=== PATIENT | male | born 1960 | race American Indian/Alaskan Native ===

== ENCOUNTER 2017-01-11 14:48 | Inpatient (IN) | payer MEDICAID, OTHER ==
[2017-01-11 15:25] LABS: BASO # 0.1 K/uL (0.0-0.2); BASO % 0.8 % (0.0-2.0); EOS # 0.2 K/uL (0.0-0.7); EOS % 2.9 % (0.0-4.0); HEMATOCRIT 39.8 % (35.0-51.0); LYMPH # 2.9 K/uL (1.0-4.3); LYMPH % 34.8 % (20.0-40.0); MEAN CELL VOLUME 94.5 fL (80.0-94.0); MEAN CORPUSCULAR HEMOGLOBIN 32.6 pg (27.0-31.0); MEAN CORPUSCULAR HGB CONC 34.5 g/dL (33.0-37.0); MEAN PLATELET VOLUME 8.5 fL (7.2-11.7); MONO # 0.4 K/uL (0.0-0.8); MONO % 5.1 % (0.0-10.0); WHITE BLOOD COUNT 8.3 K/uL (4.8-10.8)
[2017-01-11 15:37] LABS: RBC URINE < 1 /hpf (0-3); URINE BILIRUBIN NEGATIVE (NEGATIVE); URINE BLOOD NEGATIVE (NEGATIVE); URINE COLOR Straw (YELLOW); URINE GLUCOSE (UA) NORMAL (Normal); URINE KETONE NEGATIVE (NEGATIVE); URINE LEUKOCYTE ESTERASE NEG Leu/uL (Negative); URINE PROTEIN NEGATIVE (NEGATIVE); URINE UROBILINOGEN NORMAL mg/dL (0.2-1.0); WBC URINE < 1 /hpf (0-5)
[2017-01-11 15:46] LABS: CHLORIDE 103 mmol/L (98-107)
[2017-01-11 15:47] LABS: POTASSIUM 3.8 mmol/L (3.6-5.2); SODIUM 142 mmol/L (132-148)
[2017-01-11 15:50] LABS: ALB/GLOB RATIO 1.4 (1.0-2.1); ALKALINE PHOSPHATASE 68 U/L (38-126); ALT/SGPT 32 U/L (21-72); AST/SGOT 32 U/L (17-59); BILIRUBIN,TOTAL 0.6 mg/dL (0.2-1.3); BLOOD UREA NITROGEN 12 mg/dL (9-20); CALCIUM 9.1 mg/dl (8.6-10.4); CARBON DIOXIDE 23 mmol/L (22-30); GFR AFRICAN-AMERICAN > 60; GLUCOSE,RANDOM 91 mg/dL (75-110); TOTAL PROTEIN 7.7 g/dL (6.3-8.3)
[2017-01-11 15:51] LABS: ALCOHOL SERUM 174 mg/dl (0-10)
--- NOTE | 2017-01-11 16:34 | C.PDOC ---
History Of Present Illness 56 y/o male presents to ED requesting detox from alcohol and heroin. Patient states his last use was this morning. He denies any physical complaints at this time. Time Seen by Provider: 01/11/17 14:57 Chief Complaint (Nursing): Substance Abuse History Per: Patient History/Exam Limitations: no limitations Onset/Duration Of Symptoms: Gradual Current Symptoms Are (Timing): Still Present Suicide/Self Injury Attempted (Context): None Modifying Factor(s): Alcohol, Narcotics, Other (heroin) Severity: Moderate Associated Symptoms: denies: Suicidal Thoughts, Suicidal Plan Involuntary Hold By: None Additional History Per: Patient Past Medical History Reviewed: Historical Data, Nursing Documentation, Vital Signs Vital Signs: Last Vital Signs Temp 98.5 F 01/11/17 17:32 Pulse 82 01/11/17 17:32 Resp 18 01/11/17 17:32 BP 130/69 01/11/17 17:32 Pulse Ox 96 01/11/17 17:55 - Medical History PMH: No Chronic Diseases Family History: States: No Known Family Hx - Social History Hx Alcohol Use: Yes Hx Substance Use: Yes - Immunization History Hx Tetanus Toxoid Vaccination: No Hx Influenza Vaccination: No Hx Pneumococcal Vaccination: No Review Of Systems Except As Marked, All Systems Reviewed And Found Negative. Constitutional: Negative for: Fever, Chills Cardiovascular: Negative for: Chest Pain, Palpitations Respiratory: Negative for: Cough, Shortness of Breath Gastrointestinal: Negative for: Nausea, Vomiting, Abdominal Pain Genitourinary: Negative for: Dysuria, Frequency Musculoskeletal: Negative for: Neck Pain, Back Pain Skin: Negative for: Rash Neurological: Positive for: Dizziness. Negative for: Headache Psych: Negative for: Suicidal ideation Physical Exam - Physical Exam Appears: Well, Non-toxic, No Acute Distress Skin: Normal Color, Warm, Dry Eye(s): bilateral: Normal Inspection Oral Mucosa: Moist Neck: Supple Cardiovascular: Rhythm Regular Respiratory: Normal Breath Sounds, No Rales, No Rhonchi, No Wheezing Gastrointestinal/Abdominal: Normal Exam, Bowel Sounds, Soft, No Tenderness Extremity: Normal ROM, No Pedal Edema Neurological/Psych: Oriented x3 ED Course And Treatment - Laboratory Results Result Diagrams: 01/11/17 15:21 01/11/17 15:21 O2 Sat by Pulse Oximetry: 96 (RA) Pulse Ox Interpretation: Normal Progress Note: Blood work, UA, UDS ordered and reviewed. 4:35pm- Patient medically cleared. Pending crisis. 5:49pm- Patient accepted for detox admission by Dr. Yoder. Disposition - Disposition Disposition: HOSPITALIZED Disposition Time: 17:49 Condition: STABLE - Clinical Impression Clinical Impression: Heroin dependence, Alcohol dependence - Scribe Statement The provider has reviewed the documentation as recorded by the Scribe Trevor To All medical record entries made by the Scribe were at my direction and personally dictated by me. I have reviewed the chart and agree that the record accurately reflects my personal performance of the history, physical exam, medical decision making, and the department course for this patient. I have also personally directed, reviewed, and agree with the discharge instructions and disposition. Decision To Admit - Pt Status Changed To: Hospital Disposition Of: Inpatient - Admit Certification Admit to Inpatient:: After my assessment, the patient will require hospitalization for at least two midnights. This is because of the severity of symptoms shown, intensity of services needed, and/or the medical risk in this patient being treated as an outpatient. - InPatient: Physician Admission Certification: I certify that this patient requires 2 or more midnights of care for the following reason:: see notes - . Bed Request Type: Detox Admitting Physician: Vicky Yoder Patient Diagnosis: Heroin dependence, Alcohol dependence
[2017-01-12] MEDS: Multiple Vitamins Tab PO SCH (10:19)
--- NOTE | 2017-01-12 14:39 | CP.PCM.CON ---
<Maisha Camp - Last Filed: 01/12/17 15:20> History of Present Illness - History of Present Illness History of Present Illness: Medicine Consult Note for Dr. Maher CC: Consult for blood pressure management HPI: 56M with PMHx Alcohol Abuse, Heroine Abuse, and Tobacco Use Disorder was seen on Detox for heroine and alcohol withdrawal. Patient reports he feels lightheaded and dizzy. Patient reports he currently does not have any visual or neurological deficits. Denied fever, chills, headache, SOB, chest pain, abdominal pain, n/v/d/c, or urinary symptoms. PMHx: Alcohol Abuse, Heroine Abuse, and Tobacco Use Disorder PSHx: Denied Meds: Denied All: NKDA SHx: Drinks 2-3 pints of hard liquor a day for the past 5 years, sniffs heroine x 5 years, spokes 1 PPD x 5 years FHx: Denied PMD: None Past Patient History - Past Medical History & Family History Past Medical History?: Yes - Past Social History Smoking Status: Heavy Smoker > 10 Cigarettes Daily - CARDIAC Hx Cardiac Disorders: No Hx Hypertension: No - PULMONARY Hx Tuberculosis: No - NEUROLOGICAL HX Cerebrovascular Accident: No Hx Seizures: No - HEMATOLOGICAL/ONCOLOGICAL Hx Cancer: No Hx Human Immunodeficiency Virus (HIV): No - MUSCULOSKELETAL/RHEUMATOLOGICAL Hx Falls: No - GENITOURINARY/GYNECOLOGICAL Hx Sexually Transmitted Disorders: No - PSYCHIATRIC Hx Substance Use: Yes - SURGICAL HISTORY Hx Surgeries: No - ANESTHESIA Hx Anesthesia: No Meds Allergies/Adverse Reactions: Allergies Allergy/AdvReac Type Severity Reaction Status Date / Time No Known Allergies Allergy Verified 01/11/17 14:54 - Medications Medications: Current Medications Clonidine HCl (Catapres) 0.1 mg PO Q8 PRN PRN Reason: COWS Score More or Equal to 5 Last Admin: 01/12/17 06:20 Dose: 0.1 mg Folic Acid (Folic Acid) 1 mg PO DAILY [facility] Last Admin: 01/12/17 10:19 Dose: Not Given Haloperidol (Haldol) 5 mg PO Q8 PRN PRN Reason: Moderate Agitation Ibuprofen (Motrin Tab) 400 mg PO Q8H PRN PRN Reason: Pain, Mild (1-3) Loperamide HCl (Imodium) 2 mg PO Q8 PRN PRN Reason: Diarrhea Lorazepam (Ativan) 2 mg PO Q4 [facility] PRN Reason: Taper Stop: 01/16/17 18:29 Last Admin: 01/12/17 12:51 Dose: 2 mg Multivitamins (Hexavitamin) 1 tab PO DAILY [facility] Last Admin: 01/12/17 10:19 Dose: Not Given Ondansetron HCl (Zofran Tab) 4 mg PO Q8 PRN PRN Reason: Nausea/Vomiting Thiamine HCl (Vitamin B1 Tab) 100 mg PO DAILY [facility] Last Admin: 01/12/17 10:19 Dose: Not Given Trazodone HCl (Desyrel) 50 mg PO HS PRN PRN Reason: Insomnia Physical Exam - Constitutional Appears: No Acute Distress - Head Exam Head Exam: NORMAL INSPECTION, NORMOCEPHALIC - Eye Exam Eye Exam: EOMI, Normal appearance, PERRL Pupil Exam: NORMAL ACCOMODATION - ENT Exam ENT Exam: Mucous Membranes Dry, Normal Exam Additional comments: Poor dentition, most teeth are missing - Respiratory Exam Respiratory Exam: Clear to Auscultation Bilateral, NORMAL BREATHING PATTERN. absent: Decreased Breath Sounds, Wheezes - Cardiovascular Exam Cardiovascular Exam: Tachycardia, REGULAR RHYTHM. absent: Diastolic murmur, Systolic Murmur - GI/Abdominal Exam GI & Abdominal Exam: Normal Bowel Sounds, Soft. absent: Distended, Tenderness - Extremities Exam Extremities exam: Positive for: normal inspection, pedal pulses present. Negative for: pedal edema, tenderness Additional comments: Some clubbing appreciated in his hands - Neurological Exam Neurological exam: Alert, Oriented x3 - Psychiatric Exam Psychiatric exam: Normal Affect, Normal Mood - Skin Skin Exam: Dry, Intact, Normal Color, Warm Results - Vital Signs Recent Vital Signs: Last Vital Signs Temp 98.7 F 01/12/17 12:30 Pulse 51 L 01/12/17 13:45 Resp 18 01/12/17 13:45 BP 188/89 H 01/12/17 13:45 Pulse Ox 96 01/12/17 13:45 - Labs Result Diagrams: 01/11/17 15:21 01/11/17 15:21 Labs: Laboratory Results - last 24 hr 01/11/17 01/11/17 01/11/17 15:21 15:21 15:21 WBC 8.3 RBC 4.21 L Hgb 13.7 Hct 39.8 MCV 94.5 H MCH 32.6 H MCHC 34.5 RDW 15.0 H Plt Count 218 MPV 8.5 Neut % (Auto) 56.4 Lymph % (Auto) 34.8 Chase % (Auto) 5.1 Eos % (Auto) 2.9 Baso % (Auto) 0.8 Neut # 4.7 Lymph # 2.9 Chase # 0.4 Eos # 0.2 Baso # 0.1 Sodium 142 Potassium 3.8 Chloride 103 Carbon Dioxide 23 Anion Gap 20 BUN 12 Creatinine 0.9 Est GFR ( Amer) > 60 Est GFR (Non-Af Amer) > 60 Random Glucose 91 Calcium 9.1 Total Bilirubin 0.6 AST 32 ALT 32 Alkaline Phosphatase 68 Total Protein 7.7 Albumin 4.4 Globulin 3.2 Albumin/Globulin Ratio 1.4 Urine Color Straw Urine Clarity Clear Urine pH 5.0 Ur Specific [place] 1.005 Urine Protein Negative Urine Glucose (UA) Normal Urine Ketones Negative Urine Blood Negative Urine Nitrate Negative Urine Bilirubin Negative Urine Urobilinogen Normal Ur Leukocyte Esterase Neg Urine WBC (Auto) < 1 Urine RBC (Auto) < 1 Urine Opiates Screen Urine Methadone Screen Ur Barbiturates Screen Ur Phencyclidine Scrn Ur Amphetamines Screen U Benzodiazepines Scrn U Oth Cocaine Metabols U Cannabinoids Screen Alcohol, Quantitative 174 H 01/11/17 15:21 WBC RBC Hgb Hct MCV MCH MCHC RDW Plt Count MPV Neut % (Auto) Lymph % (Auto) Chase % (Auto) Eos % (Auto) Baso % (Auto) Neut # Lymph # Chase # Eos # Baso # Sodium Potassium Chloride Carbon Dioxide Anion Gap BUN Creatinine Est GFR ( Amer) Est GFR (Non-Af Amer) Random Glucose Calcium Total Bilirubin AST ALT Alkaline Phosphatase Total Protein Albumin Globulin Albumin/Globulin Ratio Urine Color Urine Clarity Urine pH Ur Specific [place] Urine Protein Urine Glucose (UA) Urine Ketones Urine Blood Urine Nitrate Urine Bilirubin Urine Urobilinogen Ur Leukocyte Esterase Urine WBC (Auto) Urine RBC (Auto) Urine Opiates Screen Positive Urine Methadone Screen Negative Ur Barbiturates Screen Negative Ur Phencyclidine Scrn Negative Ur Amphetamines Screen Negative U Benzodiazepines Scrn Negative U Oth Cocaine Metabols Negative U Cannabinoids Screen Negative Alcohol, Quantitative Assessment & Plan - Assessment and Plan (Free Text) Plan: Hypertension * Most likely 2/2 alcohol and heroine withdrawal * Clonidine 0.1mg PO Q4H PRN Hold if SBP < 120 * Hydralazine 25mg PO QID PRN SBP > 180 * Started on Norvasc 5mg PO daily * Will continue to monitor Tobacco Use Disorder * Smoking Cessation encouraged * Nicotine patch started Alcohol Withdrawal * Management as per psych Heroine Withdrawal * Management as per psych * UDS + opiates Medicine Team will monitor this patient closely. Thank you for this consult. DW Conrado Chung DO, PGY-1 <Ankur Maher - Last Filed: 01/13/17 10:43> Meds - Medications Medications: Current Medications Amlodipine Besylate (Norvasc) 5 mg PO DAILY [facility] Last Admin: 01/13/17 09:27 Dose: 5 mg Clonidine HCl (Catapres) 0.1 mg PO Q4 [facility] Last Admin: 01/13/17 08:32 Dose: Not Given Folic Acid (Folic Acid) 1 mg PO DAILY [facility] Last Admin: 01/13/17 09:15 Dose: Not Given Haloperidol (Haldol) 5 mg PO Q8 PRN PRN Reason: Moderate Agitation Hydralazine HCl (Apresoline) 25 mg PO QID PRN PRN Reason: Systolic Blood Pressure Ibuprofen (Motrin Tab) 400 mg PO Q8H PRN PRN Reason: Pain, Mild (1-3) Loperamide HCl (Imodium) 2 mg PO Q8 PRN PRN Reason: Diarrhea Lorazepam (Ativan) 1 mg PO .TAPER [facility] PRN Reason: Taper Stop: 01/17/17 10:19 Multivitamins (Hexavitamin) 1 tab PO DAILY [facility] Last Admin: 01/13/17 09:15 Dose: Not Given Nicotine (Nicoderm Cq) 1 patch TD DAILY [facility] Last Admin: 01/13/17 09:27 Dose: 1 patch Ondansetron HCl (Zofran Tab) 4 mg PO Q8 PRN PRN Reason: Nausea/Vomiting Last Admin: 01/13/17 00:56 Dose: 4 mg Thiamine HCl (Vitamin B1 Tab) 100 mg PO DAILY [facility] Last Admin: 01/13/17 09:16 Dose: Not Given Trazodone HCl (Desyrel) 50 mg PO HS PRN PRN Reason: Insomnia Results - Vital Signs Recent Vital Signs: Last Vital Signs Temp 98.0 F 01/13/17 08:27 Pulse 93 H 01/13/17 09:40 Resp 18 01/13/17 08:27 BP 146/79 01/13/17 09:40 Pulse Ox 98 01/13/17 08:27 - Labs Result Diagrams: 01/11/17 15:21 01/11/17 15:21 Attending/Attestation - Attestation I have personally seen and examined this patient.: Yes I have fully participated in the care of the patient.: Yes I have reviewed all pertinent clinical information: Yes Notes (Text): Hypertension due to withdrawal He reports no history
--- NOTE | 2017-01-12 20:50 | PCM.PSYCH ---
Initial Psychiatric Evaluation - Initial Psychiatric Evaluation Type of Admission: Voluntary Legal Status: Capacity Chief Complaint (in patient's own words): I'm feeling better History of Present Illness and Precipitating Events: Time spend 32 minutes This is a 56 yo male admitted for opioid and etoh detox. Pt reported that he is abusing heroin intranasally 12 bags daily, and had withdrawal symptoms if not able to use. His last use was yesterday. He reported opioid withdrawal symptoms such as nausea, headache, bodyaches, feeling dizzy, low appetite, nasal congestion. He reproted that he drinks 1 pint of Wine with 1 shot daily. He reported that he start using heroin and alcohol many years ago. CAGE questionnaire was positive. He reported etoh withdrawal symptoms with the evidence of physical symptoms. Pt had previous been in a detox unit in at [facility] in 2011. Pt states he lives with his mother who is a support system for him. Pt is currently unemployed for the last 4 years. Pt denies currently being on disability benefits. Pt provides no stressors. Pt does state he has poor sleep and appetite and had lost 20 lbs in about a years time. Pt denies a psychiatric hx , tx or admission. Pt denies S/H/Is. Pt denies A/V/Hs and delusions. Pt denied manic symptoms. He denied anxiety symptoms. Current Medications: Active Medications Generic Name Dose Route Start Last Admin Trade Name Freq PRN Reason Stop Dose Admin Amlodipine Besylate 5 mg 01/13/17 10:00 Norvasc PO DAILY [facility] Clonidine HCl 0.1 mg 01/12/17 16:00 01/12/17 20:19 Catapres PO Not Given Q4 [facility] Folic Acid 1 mg 01/12/17 10:00 01/12/17 10:19 Folic Acid PO Not Given DAILY [facility] Haloperidol 5 mg 01/11/17 18:22 Haldol PO Q8 PRN Moderate Agitation Hydralazine HCl 25 mg 01/12/17 15:19 Apresoline PO QID PRN Systolic Blood Pressure Ibuprofen 400 mg 01/11/17 18:29 Motrin Tab PO Q8H PRN Pain, Mild (1-3) Loperamide HCl 2 mg 01/11/17 18:22 Imodium PO Q8 PRN Diarrhea Lorazepam 2 mg 01/11/17 18:30 01/12/17 20:19 Ativan PO 01/16/17 18:29 Not Given Q4 [facility] Taper Multivitamins 1 tab 01/12/17 10:00 01/12/17 10:19 Hexavitamin PO Not Given DAILY [facility] Nicotine 1 patch 01/13/17 10:00 Nicoderm Cq TD DAILY [facility] Ondansetron HCl 4 mg 01/11/17 18:22 Zofran Tab PO Q8 PRN Nausea/Vomiting Thiamine HCl 100 mg 01/12/17 10:00 01/12/17 10:19 Vitamin B1 Tab PO Not Given DAILY [facility] Trazodone HCl 50 mg 01/11/17 18:22 Desyrel PO HS PRN Insomnia Past Psychiatric History - Past Psychiatric History Previous Treatment History: Inpatient At [facility]: [facility] 2011 for detox History of Abuse: denied History of ETOH/Drug Use: please see HPI History of Family Illness: denied Pertinent Medical Hx (Current Medical&Sleep Prob, Allergies): Allergies Allergy/AdvReac Type Severity Reaction Status Date / Time No Known Allergies Allergy Verified 01/11/17 14:54 No Known Home Med 01/11/17 Review of Systems - Review of Systems Systems not reviewed;Unavailable: Acuity of Condition All systems: reviewed and no additional remarkable complaints except (see HPI) Mental Status Examination - Personal Presentation Personal Presentation: Looks stated age, Dressed appropriate to season - Affect Affect: Constricted - Motor Activity Motor Activity: Calm, Psychomotor Retardation - Reliability in Providing Information Reliability in Providing Information: Fair - Speech Speech: Organized, Coherent - Mood Mood: Anxious - Formal Thought Process Formal Thought Process: Other (denied avh, paranoid delusions) - Hallucinations/Delusions Delusions: Other (denied) - Obsessions/Compulsions Obsessions: No Compulsions: No - Cognitive Functions Orientation: Person, Place, Situation, Time Abstract Thinking: [place] Estimate of Intelligence: Average Judgement: Intact, as evidence by: Good judgement, Intact, as evidence by: Insight regarding need for hospitalization Memory: Recent intact, as evidence by: Ability to recall events of the day - Risk Risk: Withdrawal - Strength & Assets Inventory Strength & Assets Inventory: Family support, Education, Cooperative - Limitations Limitations: Other (unemployed and chronic substance abuse) DSM 5 DX - DSM 5 DSM 5 Diagnosis: Opioid use disorder, severe Opioid withdrawal Alcohol use disorder, severe, intoxication, withdrawal - Recommended/Plan of Treatment Treatment Recommendations and Plan of Treatment: Subutex detox As needed medications Gabapentin for augmentation Attend groups and activities Supportive therapy and psychoeducation [place] for abstinence CBT for relapse prevention Encourage MAT Refer to rehab or IOP Attend self-help groups as well Monitor vitals Consulted medicine for HTN and low pulse Projected ELOS: 4-5 days Prognosis: fair with meds Discharge Plan and Discharge Criteria: as per SW when pt is stabilized - Smoking Cessation Smoking Cessation Initiated: Yes
--- NOTE | 2017-01-13 08:03 | CP.PCM.PN ---
<Ty Cmapa - Last Filed: 01/13/17 13:13> Subjective - Date & Time of Evaluation Date of Evaluation: 01/13/17 Time of Evaluation: 07:00 - Subjective Subjective: Medicine Note for Dr. Dos Santos Patient was seen and examined at bedside. Patient reports he feels better, less palpitations. Denied fever, chills, headache, SOB, chest pain, n/v/d/c, or urinary symptoms. Objective - Vital Signs/Intake and Output Vital Signs (last 24 hours): Temp Pulse Resp BP Pulse Ox 99.0 F 76 18 148/72 97 01/13/17 05:11 01/13/17 05:11 01/13/17 05:11 01/13/17 05:11 01/13/17 05:11 - Medications Medications: Current Medications Amlodipine Besylate (Norvasc) 5 mg PO DAILY [facility] Clonidine HCl (Catapres) 0.1 mg PO Q4 [facility] Last Admin: 01/13/17 05:11 Dose: Not Given Folic Acid (Folic Acid) 1 mg PO DAILY [facility] Last Admin: 01/12/17 10:19 Dose: Not Given Haloperidol (Haldol) 5 mg PO Q8 PRN PRN Reason: Moderate Agitation Hydralazine HCl (Apresoline) 25 mg PO QID PRN PRN Reason: Systolic Blood Pressure Ibuprofen (Motrin Tab) 400 mg PO Q8H PRN PRN Reason: Pain, Mild (1-3) Loperamide HCl (Imodium) 2 mg PO Q8 PRN PRN Reason: Diarrhea Lorazepam (Ativan) 2 mg PO Q4 [facility] PRN Reason: Taper Stop: 01/16/17 18:29 Last Admin: 01/13/17 05:10 Dose: Not Given Multivitamins (Hexavitamin) 1 tab PO DAILY [facility] Last Admin: 01/12/17 10:19 Dose: Not Given Nicotine (Nicoderm Cq) 1 patch TD DAILY [facility] Ondansetron HCl (Zofran Tab) 4 mg PO Q8 PRN PRN Reason: Nausea/Vomiting Last Admin: 01/13/17 00:56 Dose: 4 mg Thiamine HCl (Vitamin B1 Tab) 100 mg PO DAILY [facility] Last Admin: 01/12/17 10:19 Dose: Not Given Trazodone HCl (Desyrel) 50 mg PO HS PRN PRN Reason: Insomnia - Labs Labs: 01/11/17 15:21 01/11/17 15:21 - Additional Findings Additional findings: - Constitutional Appears: No Acute Distress - Head Exam Head Exam: NORMAL INSPECTION, NORMOCEPHALIC - Eye Exam Eye Exam: EOMI, Normal appearance, PERRL Pupil Exam: NORMAL ACCOMODATION - ENT Exam ENT Exam: Mucous Membranes Dry, Normal Exam Additional comments: Poor dentition, most teeth are missing - Respiratory Exam Respiratory Exam: Clear to Auscultation Bilateral, NORMAL BREATHING PATTERN. absent: Decreased Breath Sounds, Wheezes - Cardiovascular Exam Cardiovascular Exam: Tachycardia, REGULAR RHYTHM. absent: Diastolic murmur, Systolic Murmur - GI/Abdominal Exam GI & Abdominal Exam: Normal Bowel Sounds, Soft. absent: Distended, Tenderness - Extremities Exam Extremities exam: Positive for: normal inspection, pedal pulses present. Negative for: pedal edema, tenderness Additional comments: Some clubbing appreciated in his hands - Neurological Exam Neurological exam: Alert, Oriented x3 - Psychiatric Exam Psychiatric exam: Normal Affect, Normal Mood - Skin Skin Exam: Dry, Intact, Normal Color, Warm Assessment and Plan - Assessment and Plan (Free Text) Plan: Hypertension * Most likely 2/2 alcohol and heroine withdrawal * Clonidine 0.1mg PO Q4H PRN Hold if SBP < 120 * Hydralazine 25mg PO QID PRN SBP > 180 * Started on Norvasc 5mg PO daily * BP yesterday was: 188/89 BP today is 148/79, 114/65. * Continue to maintain patient on current regimen of norvasc 5mg PO daily Tobacco Use Disorder * Smoking Cessation encouraged * Nicotine patch started Alcohol Withdrawal * Management as per psych Heroine Withdrawal * Management as per psych * UDS + opiates Thank you for this consult, medicine team will be signing off this patient. Please consult us again if necessary. DW Conrado Rowe DO, PGY-1 <Asia Dos Santos V - Last Filed: 01/13/17 17:01> Objective - Vital Signs/Intake and Output Vital Signs (last 24 hours): Temp Pulse Resp BP Pulse Ox 98.9 F 105 H 18 113/76 98 01/13/17 15:37 01/13/17 15:37 01/13/17 15:37 01/13/17 15:37 01/13/17 15:37 - Medications Medications: Current Medications Amlodipine Besylate (Norvasc) 5 mg PO DAILY [facility] Last Admin: 01/13/17 09:27 Dose: 5 mg Clonidine HCl (Catapres) 0.1 mg PO Q4 [facility] Last Admin: 01/13/17 12:15 Dose: Not Given Folic Acid (Folic Acid) 1 mg PO DAILY [facility] Last Admin: 01/13/17 09:15 Dose: Not Given Haloperidol (Haldol) 5 mg PO Q8 PRN PRN Reason: Moderate Agitation Hydralazine HCl (Apresoline) 25 mg PO QID PRN PRN Reason: Systolic Blood Pressure Ibuprofen (Motrin Tab) 400 mg PO Q8H PRN PRN Reason: Pain, Mild (1-3) Loperamide HCl (Imodium) 2 mg PO Q8 PRN PRN Reason: Diarrhea Lorazepam (Ativan) 1 mg PO Q6 [facility] PRN Reason: Taper Stop: 01/16/17 11:59 Last Admin: 01/13/17 13:15 Dose: 1 mg Multivitamins (Hexavitamin) 1 tab PO DAILY [facility] Last Admin: 01/13/17 09:15 Dose: Not Given Nicotine (Nicoderm Cq) 1 patch TD DAILY [facility] Last Admin: 01/13/17 09:27 Dose: 1 patch Ondansetron HCl (Zofran Tab) 4 mg PO Q8 PRN PRN Reason: Nausea/Vomiting Last Admin: 01/13/17 00:56 Dose: 4 mg Thiamine HCl (Vitamin B1 Tab) 100 mg PO DAILY [facility] Last Admin: 01/13/17 09:16 Dose: Not Given Trazodone HCl (Desyrel) 50 mg PO HS PRN PRN Reason: Insomnia - Labs Labs: 01/11/17 15:21 01/11/17 15:21 Attending/Attestation - Attestation I have personally seen and examined this patient.: Yes I have fully participated in the care of the patient.: Yes I have reviewed all pertinent clinical information, including history, physical exam and plan: Yes Notes (Text): Patient seen, examined and case discussed with day-time resident. Patient seen this afternoon. Patient reports he is feeling better. patient denies chest pain, denies palpitations, denies shortness of breathe, denies abdominal pain, reports mild diarrhea, denies dysuria, denies hematuria. Patient is admitted to detox for alcohol and heroin withdrawal. No personal history of hypertension but family history of hypertension. Patient is current cigarette smoker lifelong, advised to stop smoking to limit his risk to other disease including cancer. Assessment/Plan 1) Elevated Blood Pressure w/o History of Hypertension * Most likely 2/2 alcohol and heroine withdrawal * Clonidine 0.1mg PO Q4H PRN Hold if SBP < 120 * Hydralazine 25mg PO QID PRN SBP > 180 * Started on Norvasc 5mg PO daily * Blood pressure is controlled * Will put hold parameters on Norvasc 5mg PO daily (hold SBP<100) * Advised to stop smoking which is also a contributing factor 2) Tobacco Use Disorder * Smoking Cessation encouraged * Nicotine patch started 3) Alcohol Withdrawal * Management as per psych * On ativan taper 4) Heroin Withdrawal * Management as per psych * UDS + opiates Medicine team will sign off on this case. Please consult PRN as need. Thank you.
[2017-01-13] MEDS ORDERED: Buprenorphine Hydrochloride 2 mg SL ONE ×2 (09:00→09:41)
[2017-01-13] MEDS: Multiple Vitamins Tab PO SCH (09:15)
--- NOTE | 2017-01-13 19:41 | PCM.PYCHPN ---
Psychiatric Progress Note - Psychiatric Progress Note Patient seen today, length of contact: 16 minutes Patient Chief Complaint: "I'm feeling good" Problems Identified/Issues Discussed: The pt is seen, chart reviewed, case discussed with staff. Support given, CBT and TN used briefly No new symptoms reported, improving slowly and needs more time No SEs from medications, risks, benefits and alternative choices were discussed. After care discussed DSM 5 Symptoms Update: Opioid use disorder severe, dependence Opioid withdrawal Alcohol abuse with intoxication, Alcohol dependence with uncomplicated withdrawal Medication Change: Yes (Subutex taper) Medical Record Reviewed: Yes Consults ordered or reviewed: Medicine for HTN and low pulse Mental Status Examination - Cognitive Function Orientation: Person, Place, Situation, Time Attention: WNL Concentration: WNL Association: WNL Fund of Knowledge: WN Decription of patient's judgement and insights: improving/improving - Mood Mood: Anxious - Affect Affect: Constricted - Speech Speech: Soft - Formal Thought Process Formal Thought Process: No Impairment, Other (denied avh, paranoid delusions) Psychotic Thoughts and Behaviors: denied - Suicidal Ideation Suicidal Ideation: No - Homicidal Ideation Homicidal Ideation: No Goal/Treatment Plan - Goal/Treatment Plan Need for Continued Stay: Discharge may exacerbated symptoms Progress Toward Problem(s) and Goals/Treatment Plan: Subutex detox As needed medications Gabapentin for augmentation Attend groups and activities Supportive therapy and psychoeducation [place] for abstinence CBT for relapse prevention Encourage MAT Refer to rehab or IOP Attend self-help groups as well Monitor vitals Appreciate medicine team recommendation regarding HTN and low pulse Estimated Date of D/C: 01/15/17 - Smoking Cessation Smoking Cessation Initiated: Yes
--- NOTE | 2017-01-14 08:36 | PCM.BM ---
- Milieu Protocol Milieu Narrative: Subutex detox As needed medications Gabapentin for augmentation Attend groups and activities Supportive therapy and psychoeducation [place] for abstinence CBT for relapse prevention Encourage MAT Refer to rehab or IOP Attend self-help groups as well Monitor vitals Appreciate medicine team recommendation regarding HTN and low pulse Family Contact Family involvement: Famliy/SO not involved Family contact: Patient agrees to contact - Goals for Treatment Patient goals for treatment: Complete detox and transition to [facility]. Discharge/Continuing Care - Education Needs Education Needs: Patient Medication, Patient Diagnosis/Disease Process, Patient Coping Skills, Patient Anger Management skills, Patient Placement options, Patient Community resources, Patient Activities of Daily Living - Discharge Discharge Criteria: Ability to care for self, No longer exhibiting s/s of withdrawal, Reduction of target symptoms Discharge to:: Substance Abuse Rehab - Treatment Team Participation Patient/Family/SO Statement: Subutex detox As needed medications Gabapentin for augmentation Attend groups and activities Supportive therapy and psychoeducation [place] for abstinence CBT for relapse prevention Encourage MAT Refer to rehab or IOP Attend self-help groups as well Monitor vitals Appreciate medicine team recommendation regarding HTN and low pulse 01/14/17 08:35 "I wanna go back to [facility] when I'm done..." Discussed with Family/SO: No Was Patient/Family/SO present at Treatment Team Meeting: Yes
[2017-01-14] MEDS ORDERED: Aluminum Hydroxide/Magnesium Hydroxide Susp (30 mL) PO PRN (09:03)
--- NOTE | 2017-01-14 09:31 | PCM.BM ---
<ShabnamApolonia - Last Filed: 01/14/17 09:28> Treatment Plan Problems - Problems identified on initial assessmt Potential for Opiate withdrawal Date Initiated: 01/11/17 Assessment reference: NA Status: Active Potential for Alcohol Withdrawal Date Initiated: 01/11/17 Assessment reference: NA Status: Active Treatment assets and liabiliti Patient Assests: adapts well, cooperative, ADL independent Patient Liabilities: substance abuse - Milieu Protocol Maintain good personal hygiene: daily Encourage regular showers, daily Remind patient to perform daily oral care, daily Assist patient to perform ADL's Conduct patient checks and document Observation sheet: Q15 minutes Maintain personal safety: every shift Educate patient to report safety concerns to staff, every shift Monitor environment for contraband/sharps Medication safety: Monitor for expected outcome, potential side effects: every shift, Assess barriers to learning: every shift, Assess readiness for medication education: every shift Milieu Narrative: Subutex detox As needed medications Gabapentin for augmentation Attend groups and activities Supportive therapy and psychoeducation [place] for abstinence CBT for relapse prevention Encourage MAT Refer to rehab or IOP Attend self-help groups as well Monitor vitals Appreciate medicine team recommendation regarding HTN and low pulse 01/14/17 08:35 "I wanna go back to [facility] when I'm done..." Family Contact Family involvement: Famliy/SO not involved Family contact: Patient agrees to contact - Goals for Treatment Patient goals for treatment: Complete detox and transition to [facility]. Discharge/Continuing Care - Education Needs Education Needs: Patient Medication, Patient Diagnosis/Disease Process, Patient Coping Skills, Patient Anger Management skills, Patient Placement options, Patient Community resources, Patient Activities of Daily Living - Discharge Discharge Criteria: Ability to care for self, No longer exhibiting s/s of withdrawal, Reduction of target symptoms Discharge to:: Substance Abuse Rehab - Treatment Team Participation Patient/Family/SO Statement: Subutex detox As needed medications Gabapentin for augmentation Attend groups and activities Supportive therapy and psychoeducation [place] for abstinence CBT for relapse prevention Encourage MAT Refer to rehab or IOP Attend self-help groups as well Monitor vitals Appreciate medicine team recommendation regarding HTN and low pulse 01/14/17 08:35 "I wanna go back to [facility] when I'm done..." Discussed with Family/SO: No Was Patient/Family/SO present at Treatment Team Meeting: Yes <Donny Oviedo - Last Filed: 01/14/17 23:26> - Diagnosis (1) Heroin dependence Status: Acute Interventions: 01/14/17 23:26 * Assess 7x/week regarding severity of withdrawal * Educate regarding risks, benefits, side effects and alternatives of medications * Use Motivational Interviewing for abstinence * Use CBT for relapse prevention * Medication management for withdrawal symptoms * Encourage medication assisted treatment *
[2017-01-14] MEDS: Multiple Vitamins Tab PO SCH (09:45)
[2017-01-14] MEDS ORDERED: Buprenorphine Hydrochloride 2 mg SL SCH (10:00)
[2017-01-14 13:46] VITALS: BP 111/56; PULSE 64; RESP 18; TEMP 97.4; O2SAT 100
--- NOTE | 2017-01-14 15:17 | PCM.PYCHPN ---
Psychiatric Progress Note - Psychiatric Progress Note Patient seen today, length of contact: 16 min Patient Chief Complaint: "Detox is going alright" Problems Identified/Issues Discussed: Pt is seen, chart reviewed, case discussed with staff. Pt is compliant with medications and reports no side effects. He does not report of any complaints at this time and he states his medications are helping. Symptoms are improving but pt needs more time to stabilize. Support and psychoeducation given, CBT and DC used briefly. After care discussed. He would like to attend rehab at [facility]. He states that he does not like methadone. He will work with counselors today. Medication Change: Yes (Detox meds change daily) Medical Record Reviewed: Yes Mental Status Examination - Cognitive Function Orientation: Person, Place, Situation, Time Attention: WNL Concentration: WNL Association: WNL Fund of Knowledge: WNL - Mood Mood: Neutral - Affect Affect: Constricted - Speech Speech: Appropriate - Formal Thought Process Formal Thought Process: No Impairment, Other (denied avh, paranoid delusions) - Suicidal Ideation Suicidal Ideation: No - Homicidal Ideation Homicidal Ideation: No Goal/Treatment Plan - Goal/Treatment Plan Need for Continued Stay: Discharge may exacerbated symptoms Progress Toward Problem(s) and Goals/Treatment Plan: Subutex detox for opioid withdrawal Neurontin for augmentation Continue other medications as prescribed Attend groups and activities Attend self-help groups as well Supportive therapy and psychoeducation [place] for abstinence CBT for relapse prevention Encourage MAT Refer to after care
--- NOTE | 2017-01-14 23:26 | PCM.PYCHDC ---
Mental Status Examination - Mental Status Examination Orientation: Person, Place, Situation, Time Memory: Impaired Mood: Anxious Affect: Constricted Speech: Appropriate Attention: WNL Concentration: Poor Association: WNL Fund of Knowledge: Poor Suicidal Ideation: No Current Homicidal Ideation?: No Discharge Summary - Discharge Note Reason for Hospitalization: Heroin detox Consultations:: List each consultation separately and include: 1. Reason for request. 2. Findings. 3. Follow-up Summary of Hospital Course include:: 1. Description of specific treatment plan utilized for patients during their course of treatmen. 2. Summarize the time- course for resolution of acute symptoms and/or regressed behaviors. 3. Describe issues identified and worked on during hospitalization. 4. Describe medication utilized. 5. Describe medical problems identified and treated. 6. Reassessment of suicide risk Summary of Hospital Course: The pt was admitted and started on treatment with psychotherapy, support, psychoeducation and medications. MT and CBT used. The pt attended groups and activities, as well as milieu therapy. All the risks and benefits of medications are discussed and the patient understood and agreed. The pt started to improve with the treatments provided. However next day he demanded to leave AMA for no reason After care discussed with the patient. He said he would go to meetings risks of leaving AMA, incl. OD and discussed and he understood but still leaft He likely had cravings - which he wouldn;t discuss - Final Diagnosis (DSM 5) Condition upon Discharge: STABLE DSM 5: Opioid use disorder, severe Opioid withdrawal Alcohol use disorder, severe, intoxication, withdrawal Disposition: AGAINST MEDICAL ADVICE Follow-up Treatment Plan: Use relapse prevention skills Return to ER or call 911 if suicidal, homicidal or symptoms relapse. Stay away from stress, alcohol and drugs. See primary doctor regularly and get labs. - Smoking Cessation Smoking Cessation Medication prescribed: No - Antipsychotic Medications Pt discharged on 2 or more routine antipsychotic medications: No
== END 2017-01-14 15:10 | disposition left against medical advice (07) | DRG 743 ==
LOC: C.ER 14:48 → C.7D 17:49
PROVIDERS: ADMIT Psychiatry & Neurology Psychiatry; ATTEND Psychiatry & Neurology Psychiatry
PROC: HZ2ZZZZ Detoxification Services for Substance Abuse Treatment (ICD-10-PCS; principal; 2017-01-11)
PROC: HZ59ZZZ Individual Psychotherapy for Substance Abuse Treatment, Supportive (ICD-10-PCS; 2017-01-11)
PROC: HZ46ZZZ Group Counseling for Substance Abuse Treatment, Psychoeducation (ICD-10-PCS; 2017-01-11)
DX: F11.23 Opioid dependence with withdrawal (principal); F10.230 Alcohol dependence with withdrawal, uncomplicated; F17.210 Nicotine dependence, cigarettes, uncomplicated; I10 Essential (primary) hypertension; Z82.49 Family history of ischemic heart disease and other diseases of the circulatory system

== ENCOUNTER 2018-03-08 10:43 | Emergency (ER) | payer MEDICAID, OTHER ==
[2018-03-08 10:57] VITALS: BP 152/92; PULSE 99; RESP 18; TEMP 98.8; O2SAT 100
[2018-03-08 12:40] LABS: SQUAMOUS EPITHIAL < 1 /hpf (0-5); URINE BILIRUBIN NEGATIVE (NEGATIVE); URINE BLOOD NEGATIVE (NEGATIVE); URINE CLARITY Clear (Clear); URINE COLOR Yellow (YELLOW); URINE GLUCOSE (UA) NORMAL (Normal); URINE LEUKOCYTE ESTERASE NEG Leu/uL (Negative); URINE PROTEIN NEGATIVE (NEGATIVE); URINE UROBILINOGEN NORMAL mg/dL (0.2-1.0)
--- NOTE | 2018-03-08 12:40 | C.PDOC ---
History Of Present Illness 57 y/o male, with no PMHx, comes in to ED complaining of left lower back pain that radiates towards posterior thigh and groin area since 4 days ago. States pain worsens with movement and denies any history of fall or trauma, abdominal pain, testicular pain, urinary symptoms, fever, weakness, or numbness. Time Seen by Provider: 03/08/18 11:02 Chief Complaint (Nursing): Back Pain History Per: Patient History/Exam Limitations: no limitations Onset/Duration Of Symptoms: Days Current Symptoms Are (Timing): Still Present Past Medical History Reviewed: Historical Data, Nursing Documentation, Vital Signs Vital Signs: Last Vital Signs Temp 98.8 F 03/08/18 10:54 Pulse 99 H 03/08/18 10:54 Resp 18 03/08/18 10:54 BP 152/92 H 03/08/18 10:54 Pulse Ox 100 03/08/18 10:54 - Medical History PMH: No Chronic Diseases Denies: Diabetes, Hepatitis, HIV, HTN, Seizures, Sexually Transmitted Disease - [facility] Procedures DETOXIFICATION SERVICES FOR SUBSTANCE ABUSE TREATMENT (01/11/17) GROUP LABOR RELATIONS SPECIALIST FOR SUBSTANCE ABUSE TREATMENT, PSYCHOEDUCATION (01/11/17) INDIV PSYCHOTHERAPY FOR SUBSTANCE ABUSE TREATMENT, SUPPORT (01/11/17) Family History: States: Unknown Family Hx - Social History Hx Alcohol Use: Yes Hx Substance Use: No - Immunization History Hx Tetanus Toxoid Vaccination: No Hx Influenza Vaccination: No Hx Pneumococcal Vaccination: No Review Of Systems Constitutional: Negative for: Fever Gastrointestinal: Negative for: Abdominal Pain Genitourinary: Negative for: Dysuria, Incontinence, Penile Pain Musculoskeletal: Positive for: Back Pain (left lower back pain that radiates to posterior thigh and groin area) Neurological: Negative for: Weakness, Numbness Physical Exam - Physical Exam Appears: Non-toxic, No Acute Distress, Other (well developed, well nourished) Skin: Warm, Dry, No Rash Head: Atraumatic, Normacephalic Eye(s): bilateral: Normal Inspection Oral Mucosa: Moist Cardiovascular: Rhythm Regular, No Murmur Respiratory: No Rales, No Rhonchi, No Wheezing, Other (Clear to auscultation bilaterally) Gastrointestinal/Abdominal: Bowel Sounds (normal), Soft, No Tenderness Back: No Vertebral Tenderness, Muscle Spasm (Left paralumbar), Other (Tenderness to palpation of paralumbar area) Extremity: No Pedal Edema, No Swelling, Other (Full ROM of hip, ankle, knee, legs) Pulses: Left Femoral: Normal, Right Femoral: Normal, Left Dorsalis Pedis: Nor mal, Right Dorsalis Pedis: Normal Neurological/Psych: Oriented x3, Normal Speech, Normal Motor, Normal Sensation ED Course And Treatment O2 Sat by Pulse Oximetry: 100 (RA) Pulse Ox Interpretation: Normal Medical Decision Making Medical Decision Making: Plan: --Toradol --Urinalysis 1257 pt feels markedly improved and ready to go home, ua neg for blood. d/c with nsaids and muscle relaxant. f/u pmd Disposition Counseled Patient/Family Regarding: Studies Performed, Diagnosis, Need For Followup, Rx Given - Disposition Referrals: [facility] [Outside] Disposition: HOME/ ROUTINE Disposition Time: 12:58 Condition: IMPROVED Additional Instructions: Please take ibuprofen for pain if needed every 6 hours. Warm or cold compresses to back area several times a day. Avoid heavy lifting. Take muscle relaxant if ibuprofen doesn't resolve pain, no driving or operating machinery with this medicine since it makes you sleepy. Follow up with your doctor or in clinic in a few days. Return to ER for any worse symptoms. Prescriptions: Cyclobenzaprine [Cyclobenzaprine HCl] 10 mg PO Q8 #9 tab Ibuprofen [Motrin] 600 mg PO TID #30 tab Instructions: Low Back Pain (DC) Forms: [facility] (Taiwanese), General Discharge Instructions - Clinical Impression Clinical Impression: Low back strain - PA / CONSUMER EDUCATOR / Resident Statement MD/DO has reviewed & agrees with the documentation as recorded. - Scribe Statement The provider has reviewed the documentation as recorded by the Scribshonda Jones All medical record entries made by the Flacaibshonda were at my direction and personally dictated by me. I have reviewed the chart and agree that the record accurately reflects my personal performance of the history, physical exam, medical decision making, and the department course for this patient. I have also personally directed, reviewed, and agree with the discharge instructions and disposition.
== END 2018-03-08 13:08 | disposition home or self-care (01) ==
LOC: C.ER 10:43
DX: S39.012A Strain of muscle, fascia and tendon of lower back, initial encounter (principal); X58.XXXA Exposure to other specified factors, initial encounter
CPT/HCPCS: 81001; 96372; 99283; J1885

== ENCOUNTER 2018-03-10 12:36 | Emergency (ER) | payer OTHER ==
[2018-03-10 12:50] VITALS: BP 147/87; PULSE 106; RESP 18; TEMP 98.1; O2SAT 99
--- NOTE | 2018-03-10 13:21 | C.PDOC ---
History Of Present Illness 57 year old male presents to the ED complaining of left back pain radiating to left groin for the past couple of days. Reports he was seen in the ED for same symptoms 3 days ago and was discharged with pain medications but notes no improvement. Denies any dysuria, hematuria, fever, chills, nausea, vomiting, abdominal pain, diarrhea, or any other complaints. States he has a history of kidney stones many years ago. Time Seen by Provider: 03/10/18 13:01 Chief Complaint (Nursing): Lower Extremity Problem/Injury History Per: Patient History/Exam Limitations: no limitations Onset/Duration Of Symptoms: Days Current Symptoms Are (Timing): Still Present Past Medical History Reviewed: Historical Data, Nursing Documentation, Vital Signs Vital Signs: Last Vital Signs Temp 98.1 F 03/10/18 12:47 Pulse 106 H 03/10/18 12:47 Resp 18 03/10/18 12:47 BP 147/87 03/10/18 12:47 Pulse Ox 99 03/10/18 12:47 - Medical History PMH: Kidney Stones Denies: Diabetes, Hepatitis, HIV, HTN, Seizures, Sexually Transmitted Disease Surgical History: No Surg Hx - [facility] Procedures DETOXIFICATION SERVICES FOR SUBSTANCE ABUSE TREATMENT (01/11/17) GROUP BLOW MOLD OPERATOR FOR SUBSTANCE ABUSE TREATMENT, PSYCHOEDUCATION (01/11/17) INDIV PSYCHOTHERAPY FOR SUBSTANCE ABUSE TREATMENT, SUPPORT (01/11/17) Family History: States: No Known Family Hx - Social History Hx Alcohol Use: No Hx Substance Use: No - Immunization History Hx Tetanus Toxoid Vaccination: No Hx Influenza Vaccination: No Hx Pneumococcal Vaccination: No Review Of Systems Except As Marked, All Systems Reviewed And Found Negative. Constitutional: Negative for: Fever, Chills Gastrointestinal: Negative for: Nausea, Vomiting, Abdominal Pain, Diarrhea Genitourinary: Negative for: Dysuria, Hematuria Musculoskeletal: Positive for: Back Pain (left sided back pain radiating to left groin) Physical Exam - Physical Exam Appears: Non-toxic, No Acute Distress Skin: Warm, Dry Head: Normacephalic Eye(s): bilateral: Normal Inspection Nose: Normal Oral Mucosa: Moist Neck: Normal ROM, Supple Chest: Symmetrical Back: CVA Tenderness (left sided ) Extremity: Bilateral: Atraumatic, Normal Color And Temperature, Normal ROM Neurological/Psych: Oriented x3, Normal Speech Gait: Steady ED Course And Treatment O2 Sat by Pulse Oximetry: 99 (RA) Pulse Ox Interpretation: Normal Medical Decision Making Medical Decision Making: Plan - CT abd/pel - Tylenol 975 mg PO - Motrin 600mg PO - UA CT showed no renal calculi UA normal Disposition Counseled Patient/Family Regarding: Studies Performed, Need For Followup, Rx Given - Disposition Disposition: HOME/ ROUTINE Disposition Time: 14:47 Condition: STABLE Prescriptions: Ibuprofen [Motrin] 600 mg PO TID #15 tab traMADol/Acetaminophen [Ultracet 37.5/325 mg] 1 tab PO TID PRN #15 tab PRN Reason: pain Instructions: Low Back Pain (DC) Forms: Gen Discharge Inst Mosotho, [facility] (Mosotho) - POA Present On Arrival: None - Clinical Impression Clinical Impression: Low back strain - Scribe Statement The provider has reviewed the documentation as recorded by the Scribe Yulissa Campbell All medical record entries made by the Flacaibe were at my direction and personally dictated by me. I have reviewed the chart and agree that the record accurately reflects my personal performance of the history, physical exam, me dical decision making, and the department course for this patient. I have also personally directed, reviewed, and agree with the discharge instructions and disposition.
[2018-03-10 13:42] LABS: SQUAMOUS EPITHIAL 1 /hpf (0-5); URINE BILIRUBIN NEGATIVE (NEGATIVE); URINE BLOOD NEGATIVE (NEGATIVE); URINE CLARITY Clear (Clear); URINE COLOR Yellow (YELLOW); URINE GLUCOSE (UA) NORMAL (Normal); URINE LEUKOCYTE ESTERASE NEG Leu/uL (Negative); URINE PROTEIN NEGATIVE (NEGATIVE); URINE UROBILINOGEN NORMAL mg/dL (0.2-1.0)
--- NOTE | 2018-03-10 14:16 | CT ---
Date of service: 03/10/2018 PROCEDURE: CT Abdomen and Pelvis without intravenous contrast HISTORY: leftflank pain COMPARISON: None. TECHNIQUE: Without contrast.. Contrast dose: 0 Radiation dose: Total exam DLP = 726.86 mGy-cm. This CT exam was performed using one or more of the following dose reduction techniques: Automated exposure control, adjustment of the mA and/or kV according to patient size, and/or use of iterative reconstruction technique. FINDINGS: LOWER THORAX: Unremarkable. LIVER: Unremarkable. No gross lesion or ductal dilatation. GALLBLADDER AND BILE DUCTS: Unremarkable. PANCREAS: Unremarkable. No gross lesion or ductal dilatation. SPLEEN: Unremarkable. ADRENALS: Unremarkable. No mass. KIDNEYS AND URETERS: Unremarkable. No hydronephrosis. No solid mass. VASCULATURE: Unremarkable. No aortic aneurysm. There is minimal atherosclerotic calcification of the abdominal aorta. BOWEL: Scattered colonic diverticular noted. There is no bowel obstruction. There are no other abnormal bowel loops identified. APPENDIX: Unremarkable. Normal appendix. PERITONEUM: Unremarkable. No free fluid. No free air. LYMPH NODES: No retroperitoneal or pelvic lymphadenopathy. There are innumerable shotty subcentimeter small bowel mesenteric lymph nodes of uncertain significance. Consider mesenteric adenitis. BLADDER: Poorly distended. Grossly unremarkable. REPRODUCTIVE: Enlarged prostate. BONES: No acute fracture. OTHER FINDINGS: None. IMPRESSION: Innumerable shotty subcentimeter lymph nodes in the small bowel mesentery of uncertain significance. Consider mesenteric adenitis. No evidence of urinary calculus or urinary tract obstruction. No other acute abnormality. Minor findings as above.
== END 2018-03-10 15:03 | disposition home or self-care (01) ==
LOC: C.ER 12:36
DX: S39.012A Strain of muscle, fascia and tendon of lower back, initial encounter (principal); X58.XXXA Exposure to other specified factors, initial encounter